=== PATIENT | female | born 2000 | race Asian ===

== ENCOUNTER 2024-12-04 08:28 | Outpatient (AMB) | payer OTHER, SELFPAY ==
[2024-12-04 08:43] VITALS: BP 111/72; PULSE 85; RESP 16; TEMP 36.4; O2SAT 96; BMI 23.5
--- NOTE | 2024-12-04 08:43 | GYNCLNT_ITS ---
Vital Signs 12/04/24 08:43 Height 1.65 m Height Method Measured Weight 64.183 kg Weight Measurement Method Standing Scale BMI 23.5 BP 111/72 Blood Pressure Source Automatic Cuff Blood Pressure Location Left Upper Arm Position Sitting Respiration 16 Pulse 85 Pulse Source Monitor Temp 97.5 F Temp Source Oral Pulse Oximetry (%) 96 Oxygen Delivery Method Room Air Allergies/Home Meds Allergies & Medications Allergies No Known Allergies Allergy (Verified 12/04/24 08:45) Medication Reconciliation No Known Home Medications 03/25/19 [History Confirmed 12/04/24] Intake Visit Data Collection New Patient or Established: New Patient not seen in past 3 years at [facility] (considered New) Reason for Visit:: ANNUAL WELLNESS Seen by Clinical Staff ONLY (RN/MA): No Human Resources Department Supervisor Required: No Do You Feel Safe at Home: Yes Authorities Contacted: N/A PCP or OBGYN visit in last 3 months: No Hx Now: No Are you currently on any form of Control: Yes Last menstrual period: 11/27/24 Pain Present Currently: No Pain Scale Used: Astudillo-Aaron/Numerical Pain scale:: 0 Smoking Status Smoking Status: Never smoker 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 Menstrual regularity: irregular Flow: normal Monthly: Yes How many days does period last: 7 Age at menarche: 14 Currently sexually active: Yes Additional comments: Has Nexplanon in place for 1 year 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 1. Little interest or pleasure in doing things: not at all 2. Feeling down, depressed, or hopeless: not at all Total score: 0 PHQ-9 3. Trouble falling or staying asleep, or sleeping too much: Not at all 4. Feeling tired or having little energy: Not at all 5. Poor appetite or overeating: Not at all 6. Feeling bad about yourself - or that you are a failure or have let yourself or your family down: Not at all 7. Trouble concentrating on things, such as reading the newspaper or watching television: Not at all 8. Moving or speaking so slowly that other people could have noticed? - Or the opposite - being so fidgety or restless that you have been moving around a lot more than usual: not at all 9. Thoughts that you would be better off or of hurting yourself in some way: Not at all Total score: 0 Source: Developed by Drs. Abhishek Masters, Catie Villaseñor, Sawyer Joy and colleagues, with an educational sakshi from [employer]. Depression screen completed yes Social History Living Situation History Marital Status: Single Lives With: Family Housing: House Housing Other:: Patient is single. 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 Tobacco History Smoking Status: Never smoker Second Hand Smoke Exposure: No Alcohol History Alcohol Intake: Current Alcohol Intake Frequency: holidays/special occasions only Domestic Abuse History Do You Feel Safe at Home: Yes History of Present Illness HPI Narrative The patient is a 24-year-old G0 presents for an annual exam. This was her first Pap smear. She has a Nexplanon in place for 1 year placed by [facility]. She is sexually active. She is okay with being screened for gonorrhea and chlamydia. She denies any problems today. She states her cycles used to be regular then for the first year of her Nexplanon they have been a little bit irregular. She has no complaints today including no abnormal discharge no pelvic pain no breast complaints. No family history of any gynecological cancers. Menstrual character: irregular in timing Gynecologic pain symptoms: Reports none Urogynecologic symptoms: Denies continence, leakage with cough/sneeze/laugh, urinary urgency, urinary frequency, post void dribbling or other Menopause concerns/symptoms: Reports none Other pertinent information: Has Nexplanon in place Review of Systems Genitourinary Genitourinary: Denies post void dribbling, Denies urinary frequency and Denies urinary urgency Exam General Limitations: no limitations General Appearance: alert, in no apparent distress, comfortable, cooperative, healthy appearing and well groomed Neck Neck exam: Present normal inspection, full ROM and trachea midline Chest Chest inspection: Present normal inspection and symmetric chest wall rise Resp Respiratory exam: Present normal lung sounds bilaterally Card Cardiovascular exam: Present regular rate, normal rhythm and normal heart sounds Abdominal Abdominal exam: Present soft and normal bowel sounds External exam: Present normal external exam Speculum exam: Present normal speculum exam Bimanual exam: Present normal bimanual exam (flat pelvic arch, narrow pelvic outlet) Extremities Extremities exam: Present normal inspection and full ROM Psych Psychiatric exam: Present normal affect and normal mood Skin Skin exam: Present warm, dry, intact and normal color Office Procedures OB Clinic LOC & Office Proc's Nursing/Assessment Patient Status: Initial/New Patient OB Clinic Nursing Assessment: Medication Reconciliation, Update PMH in EMR and Vital Signs OB Clinic Coordination of Care: Complex Care and Chronic Disease 1-5, Consent,records obtained, informed consent, Education Simp Pt/Fam, Lab and Imaging orders, Results/Orders obtained and Staff clarify orders Miscellaneous Interventions: Pelvic/Pap Smear Set up New Patient Charge New Patient Point Assignment: 1124 New Patient Point Charge: PAID SEARCH ANALYST Level 4 ([id number]) In Clinic Procedures Pap Smear: Yes Assessment & Plan Diagnosis / Problem List (1) Encounter for Routine Gynecological Examination: Qualifiers: Gynecological examination findings: abnormal findings ABSENT Qualified Code(s): Z01.419 - Encounter for gynecological examination (general) (routine) without abnormal findings Assessment and Plan: Pap with cotesting for HPV, GC and chlamydia were performed. Safe sex practices were discussed. Condom use was encouraged. Patient has Nexplanon in place. I did tell her it is normal to have some more bleeding at first and usually she will eventually achieve amenorrhea on the Nexplanon. She is happy with this form of control. She can keep her Nexplanon in place for 2 more years. Discussed drunk driving and encouraged [employer] use and possible date rape with drugs, discussed always being aware where her drink is if she is out at a bar and alcohol abuse. All questions were answered . The patient will follow-up in 1 year. VELVET CUTTER: Papsmear Pap Smear Procedure Chaparone in room during procedure?: No Pre-op diagnosis general: Annual wellness exam Post-op diagnosis procedure note: Same Procedure Notes:: Pap with reflex type and HPV, GC and chlamydia was performed Papsmear completed: yes
== END 2024-12-04 09:24 | disposition home or self-care (01) ==
LOC: HODSOBC 08:28
PROVIDERS: PCP Family Medicine; Referring Provider Family Medicine; Supervising Provider Obstetrics & Gynecology; Visit Provider Obstetrics & Gynecology
DX: Z01.419 Encounter for gynecological examination (general) (routine) without abnormal findings (principal); Z11.51 Encounter for screening for human papillomavirus (HPV); Z97.5 Presence of (intrauterine) contraceptive device
CPT/HCPCS: 99204; Q0091; G0463